=== PATIENT | female | born 1985 | race American Indian/Alaskan Native ===

== ENCOUNTER 2018-10-09 18:11 | Emergency (ER) | payer SELFPAY ==
--- NOTE | 2018-10-09 19:12 | Event Note ---
ED Screening Note Date of service: 10/09/18 Time: 19:06 ED Screening Note: This is a 33 y.o. F. that presents to the ER with left frontal headache and photophobia for 1 week. Reports pain as intermittent and unresponsive to NSAIDs. PMH migraines LMP 09/18/18 This initial assessment/diagnostic orders/clinical plan/treatment(s) is/are subject to change based on patients health status, clinical progression and re- assessment by fellow clinical providers in the ED. Further treatment and workup at subsequent clinical providers discretion. Patient/guardian urged not to elope from the ED as their condition may be serious if not clinically assessed and managed. Initial orders include: CT of head
[2018-10-09] MEDS ORDERED: FIORICET PO ONE (20:06)
[2018-10-09] MEDS ORDERED: TORADOL IV ONE (20:06)
[2018-10-09] MEDS ORDERED: ZOFRAN IV ONE (20:06)
[2018-10-09] MEDS ORDERED: BENADRYL IV ONE (20:06)
--- NOTE | 2018-10-09 20:41 | Emergency Department Report ---
ED Headache HPI - General Chief Complaint: Headache Stated Complaint: L SIDE OF HEAD PAIN Time Seen by Provider: 10/09/18 19:06 Source: patient Exam Limitations: no limitations - History of Present Illness Initial Comments: Patient is a 33-year-old -[place]ym[place] female with a history of chronic migraine headaches who presents to the ED with acute exacerbation of chronic headache characterized by sharp severe left frontal headache with tearing for the last 1 week. Patient states that in the last 2 days the pain has worsened to the extent that it has not responded to [id number] pain medications she was taking. Patient also complains of nausea and vomiting with generalized weakness. The patient denies change in vision, dizziness, lightheadedness, sore throat, nasal and sinus congestion, chest pain, shortness of breath, neck pain, abdominal pain, syncope or seizures. Timing/Duration: 1 week Quality: severe, constant, sharp, throbbing Head Injury Location: frontal (LEFT) Modifying Factors: improves with: other (nONE) Associated Symptoms: denies symptoms, nausea/vomiting. denies: fatigue, facial pain, fever/chills, flushing, loss of consciousness, nasal congestion, nasal drainage, numbness in legs/feet, seizures, sinus infection, stiff neck, vision changes, weakness Allergies/Adverse Reactions: Allergies No Known Allergies Allergy (Unverified 10/09/18 18:55) Home Medications: Ambulatory Orders Amoxicillin/Potassium Clav [Augmentin 875-125 Tablet] 1 each PO Q12H #20 tablet 10/09/18 Butalb/Acetamin/Caff 50-325-40 [Fioricet 50-325-40] 1 tab PO Q6HR PRN #15 tab 10/09/18 Ketorolac [Toradol] 10 mg PO Q8H PRN #20 tablet 10/09/18 Ondansetron [Zofran Odt] 4 mg PO Q8HR PRN #15 tab.rapdis 10/09/18 ED Review of Systems ROS: Stated complaint: L SIDE OF HEAD PAIN Other details as noted in HPI Constitutional: denies: chills, fever Eyes: denies: eye pain, eye discharge, vision change ENT: denies: ear pain, throat pain Respiratory: no symptoms reported. denies: cough, shortness of breath, wheezing Cardiovascular: denies: chest pain, palpitations, syncope, paroxysmal nocturnal dyspnea Endocrine: no symptoms reported Gastrointestinal: nausea, vomiting. denies: abdominal pain, diarrhea Genitourinary: denies: urgency, dysuria, discharge Musculoskeletal: denies: back pain, joint swelling, arthralgia Skin: denies: rash, lesions Neurological: headache (Palpable left frontal pain). denies: weakness, paresthesias Psychiatric: denies: anxiety, depression Hematological/Lymphatic: denies: easy bleeding, easy bruising ED Past Medical Hx - Past Medical History Previous Medical History?: Yes Hx Headaches / Migraines: Yes - Surgical History Past Surgical History?: No - Social History Smoking Status: Never Smoker Substance Use Type: None - Medications Home Medications: Home Medications Medication Instructions Recorded Confirmed Last Taken Type Amoxicillin/Potassium Clav 1 each PO Q12H #20 tablet 10/09/18 Unknown Rx [Augmentin 875-125 Tablet] Butalb/Acetamin/Caff 50-325-40 1 tab PO Q6HR PRN #15 tab 10/09/18 Unknown Rx [Fioricet 50-325-40] Ketorolac [Toradol] 10 mg PO Q8H PRN #20 tablet 10/09/18 Unknown Rx Ondansetron [Zofran Odt] 4 mg PO Q8HR PRN #15 tab.rapdis 10/09/18 Unknown Rx ED Physical Exam - General Limitations: No Limitations General appearance: alert, in no apparent distress - Head Head exam: Present: atraumatic, normocephalic, normal inspection - Eye Eye exam: Present: normal appearance, PERRL, EOMI. Absent: scleral icterus, conjunctival injection, nystagmus Pupils: Present: normal accommodation - ENT ENT exam: Present: normal exam, normal orophraynx, mucous membranes moist, TM's normal bilaterally, normal external ear exam, other (Palpable left frontal tendernesswith tearing) - Neck Neck exam: Present: normal inspection, full ROM. Absent: tenderness, lymphadenopathy, thyromegaly - Respiratory Respiratory exam: Present: normal lung sounds bilaterally. Absent: respiratory distress, wheezes, rales, rhonchi, stridor, chest wall tenderness, accessory muscle use, decreased breath sounds, prolonged expiratory - Cardiovascular Cardiovascular Exam: Present: normal rhythm, tachycardia, normal heart sounds. Absent: systolic murmur, diastolic murmur, rubs, gallop - GI/Abdominal GI/Abdominal exam: Present: soft, normal bowel sounds. Absent: tenderness, guarding, hyperactive bowel sounds, organomegaly - Rectal Rectal exam: Present: deferred - Extremities Exam Extremities exam: Present: normal inspection, full ROM, normal capillary refill - Back Exam Back exam: Present: normal inspection, full ROM. Absent: tenderness, CVA tenderness (R), CVA tenderness (L), muscle spasm, paraspinal tenderness, vertebral tenderness - Neurological Exam Neurological exam: Present: alert, oriented X3, CN II-XII intact, normal gait, reflexes normal - Psychiatric Psychiatric exam: Present: normal affect, normal mood - Skin Skin exam: Present: warm, dry, intact, normal color. Absent: rash ED Course Vital Signs 10/09/18 19:07 Temperature 98.2 F Pulse Rate 104 H Respiratory 18 Rate Blood Pressure 141/89 O2 Sat by Pulse 99 Oximetry - Reevaluation(s) Reevaluation #1: 10/09/18 22:17 This is a 33-year-old female with a history of chronic migraine headaches who presents to the ED with acute exacerbation of chronic migraine headaches for one week. Patient is alert and oriented 3 and is not in distress but appears to be in pain and photophobic. In the ED, the patient's vital signs are stable but tachycardic in triage. Patient was treated for pain in the ED and head CT scan without contrast was ordered. On reevaluation, patient's headache is well controlled with medication, and head CT scan without contrast shows no acute intracranial abnormalities or hemorrhage. On reevaluation, patient's vital signs are stable and tachycardia resolved. Patient was discharged home on medications and advised to follow-up with her primary care physician in 5-7 days for reevaluation or return to the ED immediately if symptoms get worse. ED Medical Decision Making - Radiology Data Radiology results: report reviewed, image reviewed Findings [facility] [address] [place] [address] Cat Scan Report Signed Patient: HAN MATIAS MR#: [id number] : 1985 Acct:[id number] Age/Sex: 33 / F ADM Date: 10/09/18 Loc: ED Attending Dr: Ordering Physician: CHEO HERMOSILLO Date of Service: 10/09/18 Procedure(s): CT head/brain wo con Accession Number(s): [id number] cc: CHEO HERMOSILLO CT BRAIN: 10/09/2018 INDICATION / CLINICAL INFORMATION: migraine. COMPARISON: None available. FINDINGS: BRAIN/INTRACRANIAL STRUCTURES: Unenhanced CT images of the brain dated straight no evidence of intracranial abnormality. Ventricles and sulci are normal in size and shape. There is no evidence of ischemic injury, hemorrhage, or mass. There are no abnormal extra-axial fluid collections EXTRACRANIAL STRUCTURES: Unremarkable. IMPRESSION: Negative unenhanced CT of the brain. All CT scans at this location are performed using dose reduction to ALARA by means of automated exposure control. Signer Name: Lucio Mejia MD Signed: 10/09/2018 9:49 PM Workstation Name: [id number] - Medical Decision Making This is a 33-year-old female with a history of chronic migraine headaches who presents to the ED with acute exacerbation of chronic migraine headaches for one week. Patient is alert and oriented 3 and is not in distress but appears to be in pain and photophobic. In the ED, the patient's vital signs are stable but tachycardic in triage. Patient was treated for pain in the ED and head CT scan without contrast was ordered. On reevaluation, patient's headache is well controlled with medication, and head CT scan without contrast shows no acute intracranial abnormalities or hemorrhage. On reevaluation, patient's vital signs are stable and tachycardia resolved. Patient was discharged home on medications and advised to follow-up with her primary care physician in 5-7 days for reevaluation or return to the ED immediately if symptoms get worse. - Differential Diagnosis Chronic migraine headache; Tension type headache, sinusitis Critical care attestation.: If time is entered above; I have spent that time in minutes in the direct care of this critically ill patient, excluding procedure time. ED Disposition Clinical Impression: Nausea and vomiting in adult Migraine headache without aura Qualifiers: Status migrainosus presence: without status migrainosus Intractability: not intractable Qualified Code(s): G43.009 - Migraine without aura, not intractable, without status migrainosus Acute frontal sinusitis Qualifiers: Recurrence: non-recurrent Qualified Code(s): J01.10 - Acute frontal sinusitis, unspecified Disposition: - TO HOME OR SELFCARE Is pt being admited?: No Does the pt Need Aspirin: No Condition: Stable Instructions: Sinusitis (ED), Migraine Headache (ED), Acute Nausea and Vomiting (ED) Additional Instructions: Take medications with food, drink plenty of fluids and follow-up with her primary care physician in 5-7 days for reevaluation. Return to the ED immediately if symptoms get worse. Prescriptions: Amoxicillin/Potassium Clav [Augmentin 875-125 Tablet] 1 each PO Q12H #20 tablet Butalb/Acetamin/Caff 50-325-40 [Fioricet 50-325-40] 1 tab PO Q6HR PRN #15 tab PRN Reason: Headache Ketorolac [Toradol] 10 mg PO Q8H PRN #20 tablet PRN Reason: Pain Ondansetron [Zofran Odt] 4 mg PO Q8HR PRN #15 tab.rapdis PRN Reason: Nausea Referrals: [facility] [Outside] - 3-5 Days Time of Disposition: 20:42 Print Language: MONGOLIAN
--- NOTE | 2018-10-09 21:53 | Cat Scan Report ---
CT BRAIN: 10/09/2018 INDICATION / CLINICAL INFORMATION: migraine. COMPARISON: None available. FINDINGS: BRAIN/INTRACRANIAL STRUCTURES: Unenhanced CT images of the brain dated straight no evidence of intrac ranial abnormality. Ventricles and sulci are normal in size and shape. There is no evidence of ischemic injury, hemorrhage, or mass. There are no abnormal extra-axial fluid collections EXTRACRANIAL STRUCTURES: Unremarkable. IMPRESSION: Negative unenhanced CT of the brain. All CT scans at this location are performed using dose reduction to ALARA by means of automated expos ure control. Signer Name: Lucio Mejia MD Signed: 10/09/2018 9:49 PM Workstation Name: [id number]
[2018-10-09 22:53] VITALS: BP 132/81
== END 2018-10-09 22:34 | disposition home or self-care (01) ==
LOC: ED 18:11
DX: G43.709 Chronic migraine without aura, not intractable, without status migrainosus (principal); J01.10 Acute frontal sinusitis, unspecified; R11.2 Nausea with vomiting, unspecified; Z79.899 Other long term (current) drug therapy
CPT/HCPCS: 70450; 96374; 96375; 99283; J1200; J1885; J2405